=== PATIENT | female | born 2000 | race Caucasian/White ===

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

== ENCOUNTER 2021-07-15 13:30 | Emergency (ER) | payer BC ==
[~2021-07-15 13:30] MED LIST changes: +BENTYL 20MG TAB20 MG PO; +CARAFATE1 GM PO; +ZOFRAN ODT 4 MG4 MG SL
[2021-07-15] MEDS ORDERED: TAMIFLU 75 MG C75 MG PO (14:39)
== END 2021-07-15 15:12 | disposition home or self-care (01) ==
LOC: ER1 13:30
DX: J10.1 Influenza due to other identified influenza virus with other respiratory manifestations (principal)
CPT/HCPCS: 71045; 99283